=== PATIENT | male | born 1985 | race Two or more races ===

== ENCOUNTER 2021-04-26 20:00 | Emergency (ER) | payer MEDICAID, OTHER ==
[~2021-04-26] VITALS: Ht 180.3 cm; Wt 90.7 kg
[2021-04-27] MEDS ORDERED: TETANUS-DIPTH-ACEL PERTUSSIS 0.5ML SYR Tdap IM ONE
[2021-04-27 04:00] VITALS: BP 114/70
== END 2021-04-27 11:38 | disposition home or self-care (01) ==
LOC: EDBD 20:00 → ER 20:15
DX: S01.01XA Laceration without foreign body of scalp, initial encounter (principal); Y04.2XXA Assault by strike against or bumped into by another person, initial encounter; Y93.89 Activity, other specified; Y92.89 Other specified places as the place of occurrence of the external cause; Y99.8 Other external cause status
CPT/HCPCS: 12002; 70450; 71045; 72125; 90471; 90715